=== PATIENT | female | born 1970 | race African-American/Black ===

== ENCOUNTER 2019-12-27 09:17 | Emergency (ER) | payer SELFPAY ==
[~2019-12-27] VITALS: Ht 162.6 cm; Wt 70.2 kg
--- NOTE | 2019-12-27 09:41 | NUR ---
BIB [facility], PT WITH C/O LLQ ABD PAIN WITH N/V X3 DAYS, PT WITH INCRESED URINE OUTPUT AND VAG BLEEDING WHICH IS ABNORMAL FOR HER. PT PREMENOPAUSAL NOT SEXUALLY ACTIVE. PT DENIES FEVERS, OTHER URINARY SYMPTOMS. PT TO BP, CONT PULSE OX
[2019-12-27] MEDS ORDERED: SODIUM CHLORIDE 0.9% 1,000ML IVBOLUS ONE ×2 (10:00→13:00)
[2019-12-27] MEDS ORDERED: MORPHINE SULFATE 4 MG/ML, 1ML IVPush PRN (10:00)
[2019-12-27] MEDS ORDERED: ONDANSETRON 2MG/ML, 2ML IVPush ONE (10:00)
[2019-12-27] MEDS ORDERED: SODIUM CHLORIDE FLUSH 10ML SYR IVF ONE (10:00)
[2019-12-27] MEDS ORDERED: ONDANSETRON 2MG/ML, 2ML ONE (10:19)
[2019-12-27] MEDS ORDERED: MORPHINE SULFATE 4 MG/ML, 1ML ONE (10:19)
[2019-12-27] MEDS ORDERED: PLEASE ENTER ALLERGIES MC SCH (10:30)
--- NOTE | 2019-12-27 10:30 | NUR ---
PT TO US AT THIS TIME
--- NOTE | 2019-12-27 11:21 | NUR ---
ATTEMPT TO COLLECT UA, PT STATES UNABLE TO PEE, US MADE HER PEE PRIOR TO HER TEST SHE IS TO CALL THIS RN WHEN ABLE TO URINATE
[2019-12-27 11:23] LABS: BASOPHILS # (AUTO) 0.03 x10^3/uL (0-0.1); BASOPHILS % (AUTO) 1 % (0-1); EOSINOPHILS % (AUTO) 0 % (1-7); LYMPHOCYTES # (AUTO) 1.38 x10^3/uL (1-3.4); LYMPHOCYTES % (AUTO) 23 % (22-44); MD NO; MEAN CORPUSCULAR HEMOGLOBIN 31.1 pg (27.0-34.8); MEAN CORPUSCULAR VOLUME 94.1 fL (80-100); MEAN PLATELET VOLUME 10.2 fL (7.4-10.4); MONOCYTES # (AUTO) 0.51 x10^3/uL (0.2-0.8); MONOCYTES % (AUTO) 9 % (2-9); NEUTROPHILS # (AUTO) 4.02 x10^3/uL (1.8-6.8); NEUTROPHILS % (AUTO) 68 % (42-75); PLATELET COUNT 220 x10^3/uL (130-400); RED BLOOD COUNT 5.13 x10^6/uL (3.82-5.3); RED CELL DISTRIBUTION WIDTH 15.2 % (9.6-15.2)
[2019-12-27 11:32] LABS: ANION GAP 8 mmol/L (5-15); CALCIUM 9.2 mg/dL (8.5-10.1); CHLORIDE 106 mmol/L (98-107); CREATININE 0.97 mg/dL (0.55-1.02)
[2019-12-27 11:33] LABS: ALANINE AMINOTRANSFERASE 18 U/L (12-78); ALBUMIN 4.1 g/dL (3.4-5.0)
[2019-12-27 11:37] LABS: ALKALINE PHOSPHATASE 66 U/L (45-117); BILIRUBIN,TOTAL 1.2 mg/dL (0.2-1.0); TOTAL PROTEIN 8.3 g/dL (6.4-8.2)
--- NOTE | 2019-12-27 11:50 | NUR ---
LUNCH BREAK NOTE: PT ATTEMPETED TO VOID BUT UNABLE STILL. AWARE.
[2019-12-27 14:22] VITALS: BP 158/75
[2019-12-27 14:37] LABS: MICROSCOPIC INDICATED
[2019-12-27] MEDS ORDERED: POTASSIUM CHLORIDE 20 MEQ TAB.ER.PRT PO ONE (15:00)
[2019-12-27] MEDS ORDERED: POTASSIUM CHLORIDE 20 MEQ TAB.ER.PRT ONE (15:33)
== END 2019-12-27 16:56 | disposition home or self-care (01) ==
LOC: ED 12:31
DX: N30.01 Acute cystitis with hematuria (principal); E87.5 Hyperkalemia; K59.00 Constipation, unspecified; R10.30 Lower abdominal pain, unspecified; F17.200 Nicotine dependence, unspecified, uncomplicated
CPT/HCPCS: 36415; 76830; 80053; 81001; 83605; 84702; 85025; 87086; 96361; 96374; 96375; 99284; J2270; J2405; J7030

== ENCOUNTER 2020-01-21 07:25 | Emergency (ER) | payer OTHER ==
[~2020-01-21] VITALS: Ht 162.6 cm; Wt 70.9 kg
[2020-01-21] MEDS ORDERED: MULT-90 PO (07:51)
[2020-01-21] MEDS ORDERED: MV,I66.7 PO (07:52)
--- NOTE | 2020-01-21 08:14 | NUR ---
ELIE DUNN PERFORMED A PELVIC EXAM. THIS RN WALKED SPECIMENS DOWN TO THE LAB.
[2020-01-21] MEDS ORDERED: LIDOCAINE-MPF 1%, 2ML ONE (08:17)
[2020-01-21] MEDS ORDERED: AZITHROMYCIN 500 MG TABLET ONE (08:17)
[2020-01-21] MEDS ORDERED: LORazepam 1MG TABLET ONE (08:17)
[2020-01-21] MEDS ORDERED: CEFTRIAXONE 250 MG ONE (08:17)
[2020-01-21] MEDS ORDERED: LORazepam 1MG TABLET PO ONE (08:30)
[2020-01-21] MEDS ORDERED: AZITHROMYCIN 500 MG TABLET PO ONE (08:30)
[2020-01-21] MEDS ORDERED: CEFTRIAXONE 250 MG IM ONE (08:30)
--- NOTE | 2020-01-21 08:36 | NUR ---
PT MEDICATED PER MAR.
[2020-01-21 08:39] LABS: CLUE CELLS NONE SEEN (NONE SEEN); WET PREP WBCS MANY (FEW)
--- NOTE | 2020-01-21 08:49 | NUR ---
ALFREDITO RN: URINE SAMPLE COLLECTED AND SENT TO LAB.
[2020-01-21 09:01] LABS: MICROSCOPIC AUTO
[2020-01-21 09:04] LABS: HCG UR SG 1.024 (1.003-1.030)
[2020-01-21 10:11] VITALS: BP 166/86
--- NOTE | 2020-01-21 10:12 | NUR ---
Patient given discharge instructions and they have confirmed that they understand the instructions. Patient ambulatory with steady gait.
== END 2020-01-21 10:13 | disposition home or self-care (01) ==
LOC: ED 08:58
DX: I10 Essential (primary) hypertension (principal); R30.0 Dysuria; N89.8 Other specified noninflammatory disorders of vagina
CPT/HCPCS: 81001; 81025; 87086; 87147; 87210; 87491; 87591; 87808; 96372; 99283; J0696

== ENCOUNTER 2021-01-02 10:18 | Emergency (ER) | payer SELFPAY ==
[~2021-01-02] VITALS: Ht 162.6 cm; Wt 73.0 kg
[~2021-01-02 10:18] MED LIST: MULT-90 PO; MV,I66.7 PO
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
[2021-01-02] MEDS ORDERED: LIDOCAINE-MPF 1%, 5ML INFIL ONE (11:00)
[2021-01-02] MEDS ORDERED: NEOSPORIN OINT. PKT 1 PACKET ONE (11:02)
[2021-01-02] MEDS ORDERED: DIPH,PERTUSS(ACELL),TET VAC/PF 0.5 ML IM-VACC ONE ×3 (11:06→11:30)
[2021-01-02 11:20] VITALS: BP 178/107
--- NOTE | 2021-01-02 11:21 | NUR ---
bp high, pt denies hx of htn even though her clinical screen hx shows htn, deneis meds/steele/blurry vision/chest pain/chest tightness/dizziness. as
== END 2021-01-02 11:41 | disposition home or self-care (01) ==
LOC: ED 11:35
DX: S21.141A Puncture wound with foreign body of right front wall of thorax without penetration into thoracic cavity, initial encounter (principal); I10 Essential (primary) hypertension; X58.XXXA Exposure to other specified factors, initial encounter; Y93.89 Activity, other specified; Y92.89 Other specified places as the place of occurrence of the external cause; Y99.8 Other external cause status
CPT/HCPCS: 10120; 90471; 90715; 99285